=== PATIENT | male | born 1950 | race Caucasian/White ===

== ENCOUNTER 2019-04-12 19:15 | Inpatient (IN) | payer BC, MEDICARE, OTHER ==
[~2019-04-12] VITALS: Ht 182.9 cm; Wt 74.4 kg
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
[2019-04-12] MEDS ORDERED: LORAZEPAM 0.5 MG TABLET PO PRN (21:30)
[2019-04-12] MEDS ORDERED: ACETAMINOPHEN 325 MG TABLET PO PRN (21:30)
[2019-04-12] MEDS ORDERED: MAG HYDROX/AL HYDROX/SIMETH 30 ML UDC PO PRN (21:30)
[2019-04-12] MEDS ORDERED: MAGNESIUM HYDROXIDE 30 ML UDC PO PRN (21:30)
[2019-04-13 00:10] VITALS: BP 127/74
[2019-04-13] MEDS ORDERED: TAMS-12 PO (05:50)
[2019-04-13] MEDS ORDERED: LISI-603 PO (05:50)
[2019-04-13 07:03] LABS: BASOPHILS % (AUTO) 0.7 % (0.0-2.0); EOSINOPHILS % (AUTO) 1.8 % (0.0-6.0); HEMATOCRIT 43 % (39-51); HEMOGLOBIN 14.5 g/dL (13.5-17.5); LYMPHOCYTES # (AUTO) 1.8 /CMM (0.8-4.8); LYMPHOCYTES % (AUTO) 36.3 % (20.0-44.0); MEAN CORPUSCULAR HGB CONC 34 g/dl (31.0-36.0); MEAN CORPUSCULAR VOLUME 94 fL (80-96); MONOCYTES # (AUTO) 0.5 /CMM (0.1-1.30); NEUTROPHILS # (AUTO) 2.6 /CMM (1.8-8.9); NEUTROPHILS % (AUTO) 51.2 % (43.0-81.0); PLATELET COUNT (AUTO) 321 /CMM (150-450); RED BLOOD CELL COUNT(AUTO) 4.57 MIL/uL (4.5-6.0)
[2019-04-13] MEDS ORDERED: ALBU8.5H8 IH (07:21)
[2019-04-13 07:26] LABS: ALBUMIN 3.3 g/dL (3.4-5.0); BILIRUBIN,TOTAL 2.1 mg/dL (0.2-1.0); CALCIUM, SERUM 8.8 mg/dL (8.5-10.1); POTASSIUM 4.3 mmol/L (3.5-5.1); TOTAL PROTEIN, SERUM 6.8 g/dL (6.4-8.2)
[2019-04-13 07:28] LABS: CHOLESTEROL 123 mg/dL (<200); HDL CHOLESTEROL 59 mg/dL (40-60); LDL 56 mg/dL (0-99); TRIGLYCERIDES 59 mg/dL (30-150)
[2019-04-13 08:00] VITALS: BP 129/73
--- NOTE | 2019-04-13 08:00 | NUR ---
GPS RN AM NOTES: PT ALERT,AWAKE AND AMBULATORY.VERBALLY RESPONSIVE. ON 5150 HOLD FOR DANGERS TO SELF AND GRAVELY DISABLED. PT DENIES AUDITORY AND VISUAL HALLUCINATIONS. PATIENT IS A&O X1-2 DISORGANIZED, CONFUSED, ANXIOUS, DISHEVELED, V/S WNL , SKIN CLEAR AND INTACT. PT REFUSED TO SIGN THE CONSENT FORMS. PROVIDE THE PT. WITH HANDBOOK AND MEDICATIONS GUIDE, ENVIRONMENTAL SAFETY CHECK DONE. ENCOURAGED PT. TO VERBALIZED FEELINGS AND CONCERNS TO STAFF. ORIENT TO UNIT POLICY. NO ACUTE DISTRESS NOTED DENIES ANY PAIN AT THIS TIME. BED IN LOWEST POSITION SIDERAILS UPX2, CALL SWAN WITHIN REACH. ALL NEEDS ATTENDED AND ANTICIPATED. WILL CONTINUE TO MONITOR FOR [id number] FOR SAFETY AND BEHAVIOR.
--- NOTE | 2019-04-13 15:50 | NUR ---
JONATHAN called the pts son, Porfirio ([phone]), and was unable to make contact due to the phone number being disconnected.
[2019-04-13 16:00] VITALS: BP 119/79
--- NOTE | 2019-04-13 16:28 | NUR ---
Initial Discharge Plan: Pt is currently homeless and stated that he is need of placement. SW will work with the pt and the MD regarding appropriate discharge planning. SW will form a safe and proper discharge.
[2019-04-13 16:42] LABS: BILIRUBIN,DIRECT 0.2 mg/dL (0.0-0.2); BILIRUBIN,TOTAL 2.2 mg/dL (0.2-1.0)
[2019-04-13 20:00] VITALS: BP 148/74
[2019-04-13] MEDS: DIVALPROEX SODIUM 250 MG TABLET.DR PO SCH (21:53)
[2019-04-13] MEDS: RIVASTIGMINE TARTRATE 1.5 MG CAPSULE PO SCH (21:53)
[2019-04-13] MEDS: TEMAZEPAM 7.5 MG CAPSULE PO PRN (21:55)
[2019-04-14 07:45] LABS: CALCIUM, SERUM 8.8 mg/dL (8.5-10.1); CREATININE 0.9 mg/dL (0.6-1.3); PHOSPHORUS 3.6 mg/dL (2.5-4.9); POTASSIUM 4.6 mmol/L (3.5-5.1)
[2019-04-14 07:51] LABS: URINE SODIUM, RANDOM 62 mmol/l (40-220)
[2019-04-14 07:53] LABS: THYROID STIMULATING HORMONE 0.993 uIU/mL (0.358-3.74); URIC ACID 3.7 mg/dL (2.6-7.2)
[2019-04-14 08:00] VITALS: BP 121/79
[2019-04-14 08:02] LABS: OSMOLALITY,URINE 437 mOS/kg (340-1090)
[2019-04-14] MEDS: RIVASTIGMINE TARTRATE 1.5 MG CAPSULE PO SCH ×2 (08:39→20:27)
[2019-04-14] MEDS: DIVALPROEX SODIUM 250 MG TABLET.DR PO SCH ×2 (08:39→20:27)
[2019-04-14] MEDS ORDERED: ALBUTEROL FS 2.5 MG/0.5 ML VIAL.NEB NEB PRN (13:30)
[2019-04-14 16:00] VITALS: BP 132/82
[2019-04-14 19:54] VITALS: BP 147/74
[2019-04-14] MEDS: TEMAZEPAM 7.5 MG CAPSULE PO PRN (20:30)
[2019-04-15 08:00] VITALS: BP 117/60
[2019-04-15] MEDS: RIVASTIGMINE TARTRATE 1.5 MG CAPSULE PO SCH ×2 (09:21→21:14)
[2019-04-15] MEDS: TAMSULOSIN 0.4 MG CAP.SR.24H PO SCH (09:21)
[2019-04-15] MEDS: LISINOPRIL (20MG) 20 MG TABLET PO SCH (09:22)
[2019-04-15] MEDS: DIVALPROEX SODIUM 250 MG TABLET.DR PO SCH ×2 (09:22→21:14)
[2019-04-15 16:00] VITALS: BP 100/68
[2019-04-15 20:31] VITALS: BP 107/58
[2019-04-15] MEDS: TEMAZEPAM 7.5 MG CAPSULE PO PRN (21:15)
[2019-04-16 08:00] VITALS: BP 107/70
[2019-04-16 08:16] LABS: CALCIUM, SERUM 8.7 mg/dL (8.5-10.1); POTASSIUM 4.5 mmol/L (3.5-5.1)
[2019-04-16] MEDS: RIVASTIGMINE TARTRATE 1.5 MG CAPSULE PO SCH ×2 (08:24→21:36)
[2019-04-16] MEDS: DIVALPROEX SODIUM 250 MG TABLET.DR PO SCH ×2 (08:24→21:36)
[2019-04-16] MEDS: TAMSULOSIN 0.4 MG CAP.SR.24H PO SCH (08:24)
[2019-04-16] MEDS: LISINOPRIL (20MG) 20 MG TABLET PO SCH (08:25)
[2019-04-16] MEDS: SODIUM CHLORIDE 1000 MG TABLET.SOL PO SCH ×2 (12:15→16:29)
--- NOTE | 2019-04-16 14:44 | NUR ---
GROUP NOTE: Pt was present in group but unable to participate due to cognitive impairment; pt stated, "I'm looking for my keys where are they, I think I misplaced them." Pt was walking around the activity room and unable to sit still.
[2019-04-16 16:00] VITALS: BP 116/60
[2019-04-16 20:48] VITALS: BP 144/76
[2019-04-17 07:51] LABS: BASOPHILS % (AUTO) 0.9 % (0.0-2.0); EOSINOPHILS % (AUTO) 1.4 % (0.0-6.0); HEMATOCRIT 41 % (39-51); HEMOGLOBIN 13.8 g/dL (13.5-17.5); LYMPHOCYTES # (AUTO) 2.1 /CMM (0.8-4.8); MEAN CORPUSCULAR HGB CONC 34 g/dl (31.0-36.0); MEAN CORPUSCULAR VOLUME 93 fL (80-96); MONOCYTES # (AUTO) 0.4 /CMM (0.1-1.30); MONOCYTES % (AUTO) 8.6 % (2.0-12.0); NEUTROPHILS # (AUTO) 2.2 /CMM (1.8-8.9); NEUTROPHILS % (AUTO) 46.1 % (43.0-81.0); PLATELET COUNT (AUTO) 331 /CMM (150-450); RED BLOOD CELL COUNT(AUTO) 4.36 MIL/uL (4.5-6.0); WHITE BLOOD COUNT (AUTO) 4.8 K/uL (4.3-11.0)
[2019-04-17 08:00] VITALS: BP 133/89
[2019-04-17 08:18] LABS: ALBUMIN 3.1 g/dL (3.4-5.0); CALCIUM, SERUM 8.8 mg/dL (8.5-10.1); PHOSPHORUS 3.8 mg/dL (2.5-4.9); POTASSIUM 4.6 mmol/L (3.5-5.1); TOTAL PROTEIN, SERUM 6.6 g/dL (6.4-8.2)
[2019-04-17] MEDS: SODIUM CHLORIDE 1000 MG TABLET.SOL PO SCH ×2 (10:08→16:57)
[2019-04-17] MEDS: DIVALPROEX SODIUM 250 MG TABLET.DR PO SCH ×2 (10:09→17:19)
[2019-04-17] MEDS: TAMSULOSIN 0.4 MG CAP.SR.24H PO SCH (10:09)
[2019-04-17] MEDS: LISINOPRIL (20MG) 20 MG TABLET PO SCH (10:09)
[2019-04-17] MEDS: RIVASTIGMINE TARTRATE 1.5 MG CAPSULE PO SCH ×2 (10:09→21:11)
--- NOTE | 2019-04-17 14:35 | NUR ---
SW faxed three referrals to [facility] facilities that are listed below: [facility] with attention to Candy to the fax number: [phone] [facility] with attention to Edda/Sami to the fax number: [phone] [facility] with attention to Tara to the fax number: [phone].
--- NOTE | 2019-04-17 15:50 | NUR ---
GROUP NOTE: Pt was present in group but unable to participate due to cognitive impairment. Pt was pacing back and forth and unable to sit in a group setting.
[2019-04-17 16:00] VITALS: BP 113/67
[2019-04-17 20:29] VITALS: BP 105/57
[2019-04-17] MEDS: TEMAZEPAM 7.5 MG CAPSULE PO PRN (21:11)
[2019-04-18 08:00] VITALS: BP 105/69
[2019-04-18] MEDS: LISINOPRIL (20MG) 20 MG TABLET PO SCH (09:00)
[2019-04-18] MEDS: DIVALPROEX SODIUM 250 MG TABLET.DR PO SCH ×3 (09:50→18:00)
[2019-04-18] MEDS: TAMSULOSIN 0.4 MG CAP.SR.24H PO SCH (09:50)
[2019-04-18] MEDS: RIVASTIGMINE TARTRATE 1.5 MG CAPSULE PO SCH ×2 (09:51→21:53)
[2019-04-18] MEDS: SODIUM CHLORIDE 1000 MG TABLET.SOL PO SCH ×2 (09:51→18:00)
--- NOTE | 2019-04-18 10:22 | NUR ---
SW called [facility] ([phone]) and spoke to Candy who stated that the pt was accepted to their facility.
--- NOTE | 2019-04-18 10:43 | NUR ---
MUMBLING TO SELF,SUSPICIOUS,PARANOID.
[2019-04-18 16:00] VITALS: BP 107/75
--- NOTE | 2019-04-18 16:00 | NUR ---
SPOKE AT LENGTH WITH DTR. TAYLOR.STATES SHE LIVES OUT OF STATE AND WOULD LIKE TO MOVE PT. TO HER AREA IN [place].WILL GIVE HER # TO DR. MEDELLIN TO GET UPDATE ON PT. STATUS.
--- NOTE | 2019-04-18 18:51 | NUR ---
LEFT NOTE FOR HUSSEIN SOC.WORKER TO CALL DTR. TAYLOR #[phone].
[2019-04-18 20:09] VITALS: BP 125/66
[2019-04-18] MEDS: TEMAZEPAM 7.5 MG CAPSULE PO PRN (21:54)
[2019-04-19 07:51] LABS: CALCIUM, SERUM 8.7 mg/dL (8.5-10.1); CREATININE 0.9 mg/dL (0.6-1.3); POTASSIUM 4.7 mmol/L (3.5-5.1)
[2019-04-19 07:53] LABS: BASOPHILS % (AUTO) 0.9 % (0.0-2.0); EOSINOPHILS % (AUTO) 1.7 % (0.0-6.0); HEMATOCRIT 40 % (39-51); HEMOGLOBIN 13.7 g/dL (13.5-17.5); LYMPHOCYTES # (AUTO) 1.7 /CMM (0.8-4.8); LYMPHOCYTES % (AUTO) 44.8 % (20.0-44.0); MEAN CORPUSCULAR HGB CONC 34 g/dl (31.0-36.0); MEAN CORPUSCULAR VOLUME 93 fL (80-96); MONOCYTES # (AUTO) 0.3 /CMM (0.1-1.30); NEUTROPHILS # (AUTO) 1.6 /CMM (1.8-8.9); NEUTROPHILS % (AUTO) 43.6 % (43.0-81.0); PLATELET COUNT (AUTO) 324 /CMM (150-450); RED BLOOD CELL COUNT(AUTO) 4.28 MIL/uL (4.5-6.0); WHITE BLOOD COUNT (AUTO) 3.8 K/uL (4.3-11.0)
[2019-04-19 08:00] VITALS: BP 114/80
--- NOTE | 2019-04-19 08:57 | NUR ---
SW called the pt's daughter, Jeanne ([phone]), and left her a voicemail stating that the SW would like to discuss the pts treatment and discharge plan.
[2019-04-19] MEDS: LISINOPRIL (20MG) 20 MG TABLET PO SCH (09:06)
[2019-04-19] MEDS: DIVALPROEX SODIUM 250 MG TABLET.DR PO SCH ×3 (09:06→17:36)
[2019-04-19] MEDS: RIVASTIGMINE TARTRATE 1.5 MG CAPSULE PO SCH ×2 (09:06→20:48)
[2019-04-19] MEDS: TAMSULOSIN 0.4 MG CAP.SR.24H PO SCH (09:06)
[2019-04-19] MEDS: SODIUM CHLORIDE 1000 MG TABLET.SOL PO SCH ×2 (09:06→17:36)
--- NOTE | 2019-04-19 09:55 | NUR ---
Jeanne ([phone]), pts daughter, called the SW and the SW informed her about the reasoning behind the pts hold and then informed her that due to the pt being homeless the discharge plan is to send him to a retirement facility. Pts daughter stated that the pt is not homeless and that she had just visited the pt in his apartment the previous month. SW stated that she would verify the address on the facesheet belongs to the pt.
--- NOTE | 2019-04-19 09:57 | NUR ---
JONATHAN called [facility] ([phone]) and spoke to the landlord who stated that the pt does have the apartment that is listed on his face sheet and that the pt already has a one month advance on his rent.
--- NOTE | 2019-04-19 15:59 | NUR ---
JONATHAN called the pt's daughter, Jeanne ([phone]), and left her a voicemail stating that the pt is going to be discharged to the SNF tomorrow and that the pt does have the apartment and is not homeless.
[2019-04-19 16:00] VITALS: BP 100/54
--- NOTE | 2019-04-19 16:22 | NUR ---
Group Note: Pt refused to attend group therapy that took place on 04/19/19 at 2:30PM because he stated that he wanted to continue pacing around the unit.
[2019-04-19 20:00] VITALS: BP 123/66
[2019-04-19] MEDS: TEMAZEPAM 7.5 MG CAPSULE PO PRN (20:48)
[2019-04-20 08:00] VITALS: BP 102/73
[2019-04-20 09:00] VITALS: BP 102/72
[2019-04-20] MEDS: LISINOPRIL (20MG) 20 MG TABLET PO SCH (09:00)
[2019-04-20] MEDS: DIVALPROEX SODIUM 250 MG TABLET.DR PO SCH ×2 (09:07→12:16)
[2019-04-20] MEDS: RIVASTIGMINE TARTRATE 1.5 MG CAPSULE PO SCH (09:07)
[2019-04-20] MEDS: SODIUM CHLORIDE 1000 MG TABLET.SOL PO SCH (09:07)
[2019-04-20] MEDS: TAMSULOSIN 0.4 MG CAP.SR.24H PO SCH (09:07)
--- NOTE | 2019-04-20 09:32 | NUR ---
DR. MEDELLIN GAVE AN ORDER TO D/C HOLD AND D/C TO [facility] () AND TO FOLLOW UP WITH PSYCH AND MEDICAL DOCTORS.
--- NOTE | 2019-04-20 10:38 | NUR ---
RN-CO: DR MEDELLIN ORDERED TO DISCONTINUE HOLD AND DISCHARGE PATIENT TODAY TO SNF NOTED. [phone]. BRANDON DAUGHTER ( MADE AWARE OF THE DISCHARGE. PATIENT REMAINS CALM AND COOPERATIVE TO CARE. NO ACUTE DISTRESS NOTED. PT DENIED SUICIDAL AND HOMICIDAL IDEATION, DENIED AUDITORY AND VISUAL HALLUCINATION. RN EXPLAINED ALL DISCHARGE PAPERS TO PATIENT , HE SIGNED AND VERBALIZED UNDERSTANDING.REPORT WAS GIVEN TO SUNNY CROCKER IN [facility]. BELONGINGS WILL BE GIVEN BACK TO THE PATIENT.
--- NOTE | 2019-04-20 12:58 | NUR ---
RN-CO: PATIENT WAS SEEN AND EXAMINED BY NABOR ESCOBAR NP AND MEDICALLY CLEARED HIM FOR DISCHARGE. REPORT WAS GIVEN TO EMT ( ANALI) AND JESUS RN RECEIVING THE PATIENT.ALL BELONGINGS WERE GIVEN BACK. PATIENT ATE LUNCH BEFORE DISCHARGE.
--- NOTE | 2019-04-20 16:06 | NUR ---
Discharge Note: Pt was discharged to [facility] ([facility]) located at [address] [place] [address]; . Pt was transported via [facility] 11AM. Pt�s daughter, Jeanne ([phone]), was notified. Upon discharge, the pt appeared to be in a euthymic mood and presented with a calm affect. Pt denied both suicidal and homicidal ideation as well as auditory and visual hallucinations. Pt will be under the care of his psychiatrist, Dr. Witt, located at [address] [place] [address]; and his process development engineer, Dr. Main, located at [address], [place] [address]; .
== END 2019-04-20 13:15 | DRG 885 ==
LOC: GPS 20:55
PROVIDERS: ADMIT Psychiatry & Neurology Psychiatry; ATTEND Internal Medicine Nephrology
DX: F39 Unspecified mood [affective] disorder (principal); E22.2 Syndrome of inappropriate secretion of antidiuretic hormone; F23 Brief psychotic disorder; F29 Unspecified psychosis not due to a substance or known physiological condition; F41.9 Anxiety disorder, unspecified; G30.9 Alzheimer's disease, unspecified; F02.80 Dementia in other diseases classified elsewhere, unspecified severity, without behavioral disturbance, psychotic disturbance, mood disturbance, and anxiety; Z73.6 Limitation of activities due to disability; E80.6 Other disorders of bilirubin metabolism; R74.0 Nonspecific elevation of levels of transaminase and lactic acid dehydrogenase [LDH]
CPT/HCPCS: 36415; 76705-TC; 80048-TC; 80053-TC; 80061-TC; 80164-TC; 82247-TC; 82248-TC; 83735-TC; 83935-TC; 84100-TC; 84300-TC; 84443-TC; 84550-TC; 85025-TC; 87081-TC